=== PATIENT | male | born 1950 | race African-American/Black ===

== ENCOUNTER 2018-11-10 14:11 | Inpatient (IN) | payer OTHER ==
[2018-11-10 16:45] VITALS: BMI 26.9
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
[2018-11-10] MEDS ORDERED: MENTHOL/PHENOL 1 EACH UD MM PRN (19:28)
[2018-11-10] MEDS ORDERED: guaiFENesin 200 MG/10 ML 10 ML UNIT-DOSE CUPS PO PRN (19:28)
[2018-11-10] MEDS ORDERED: hydrOXYzine PAMOATE 25 MG CAPSULE (FP) PO PRN (19:28)
[2018-11-10] MEDS ORDERED: chlordiazePOXIDE HCL 25 MG CAPSULE PO PRN (19:28)
[2018-11-10] MEDS ORDERED: METHOCARBAMOL 500 MG TABLET PO PRN (19:28)
[2018-11-10] MEDS ORDERED: BISMUTH SUBSALICYLATE 524 MG/30 ML UD PO PRN (19:28)
[2018-11-10] MEDS ORDERED: P-EPHED 60MG/TRIPROLIDI 2.5MG TABLET PO PRN (19:28)
[2018-11-10] MEDS ORDERED: MAGNESIUM CITRATE 300 ML BOTTLE PO PRN (19:28)
[2018-11-10] MEDS ORDERED: MAGNESIUM HYDROX 2400MG/30ML ORAL SUSPENSION 30 ML CUP PO PRN (19:28)
[2018-11-10] MEDS ORDERED: IBUPROFEN 400 MG TABLET (FP) PO PRN (19:28)
[2018-11-10] MEDS ORDERED: DICYCLOMINE HCL 10 MG CAPSULE PO PRN (19:28)
[2018-11-10] MEDS ORDERED: NICOTINE POLACRILEX 2 MG GUM BUC PRN (19:28)
[2018-11-10] MEDS ORDERED: MAG HYDROX/AL HYDROX/SIMETH 30 ML UNIT-DOSE CUP PO PRN (19:28)
[2018-11-10] MEDS ORDERED: ONDANSETRON *ODT* 4 MG TABLET SL PRN (19:28)
[2018-11-10] MEDS ORDERED: ACETAMINOPHEN 325 MG TABLET (FP) PO PRN ×2 (19:28)
[2018-11-10] MEDS: THIAMINE HCL 100 MG TABLET (FP) PO SCH (22:01)
[2018-11-10] MEDS: chlordiazePOXIDE HCL 25 MG CAPSULE PO SCH (22:01)
[2018-11-10] MEDS: MELATONIN 5 MG TABLETS PO PRN (22:02)
[2018-11-11] MEDS: chlordiazePOXIDE HCL 25 MG CAPSULE PO SCH ×4 (06:45→23:38)
[2018-11-11] MEDS: NICOTINE 14 MG/24 HOURS TOPICAL PATCH TD SCH (10:19)
[2018-11-11] MEDS: PRENATAL VITAMINS W/ FOLIC ACID TABLET (FP) PO SCH (10:19)
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
--- NOTE | 2018-11-11 11:41 | EKG ---
Test Reason : Blood Pressure : / mmHG Vent. Rate : 069 BPM Atrial Rate : 069 BPM P-R Int : 182 ms QRS Dur : 144 ms QT Int : 442 ms P-R-T Axes : 022 016 064 degrees QTc Int : 473 ms NORMAL SINUS RHYTHM RIGHT BUNDLE BRANCH BLOCK ABNORMAL ECG NO PREVIOUS ECGS AVAILABLE Confirmed by MARY SHAW, AMY ([id number]) on 11/11/2018 11:40:53 AM Referred By: UZMA HODGE Confirmed By:AMY HERNANDEZ MD
[2018-11-11 12:29] LABS: ALBUMIN 2.4 g/dl (3.4-5.0); BILIRUBIN,TOTAL 0.4 mg/dL (0.2-1); BLOOD UREA NITROGEN 15.1 mg/dL (7-18); CALCIUM 8.2 mg/dL (8.5-10.1); CREATININE 1.6 mg/dL (0.55-1.3); POTASSIUM 3.8 mmol/L (3.5-5.1); TOT PROT 6.3 g/dl (6.4-8.2)
[2018-11-11 13:20] LABS: HEMATOCRIT 33.6 % (35.4-49); HEMOGLOBIN 10.4 GM/dL (11.7-16.9); MCH 25.1 pg (25.7-33.7); MCHC 30.9 g/dl (32.0-35.9); MEAN PLT VOLUME 8.7 fl (7.5-11.1); PLATELET COUNT 108 K/MM3 (134-434); RBC 4.15 M/mm3 (4.00-5.60); RDW 15.4 % (11.9-15.9); WHITE BLOOD COUNT 4.6 K/mm3 (4.0-10.0)
[2018-11-11] MEDS: LIDOCAINE 5% TOPICAL PATCH TP SCH (15:01)
--- NOTE | 2018-11-11 16:26 | PN ---
[facility] CIWA - CIWA Score Nausea/Vomitin-No Nausea/No Vomiting Muscle Tremors: 3 Anxiety: 3 Agitation: 0-Normal Activity Paroxysmal Sweats: No Perspiration Orientation: 2-Disoriented Date<2 days Tacttile Disturbances: 2-Mild Itch/Numbness/Burn Auditory Disturbances: 2-Mild Harshness/Frighten Visual Disturbances: 0-None Headache: 0-None Present CIWA-Ar Total Score: 12 S COWS - Scale Resting Pulse: 1= [place] 81-100 Sweatin= No chills or Flushing Restless Observation: 0= Sits Still Pupil Size: 0= Normal to Room Light Bone or Joint Aches: 2= Severe Diffuse Aches Runny Nose/ Eye Tearin= None GI Upset > 30mins: 0= None Tremor Observation of Outstretched Hands: 2= Slight Tremor Visible Yawning Observation: 1= 1-2x During Session Anxiety or Irritability: 2=Irritable/Anxious Goose Flesh Skin: 3=Piloerection COWS Score: 11 S Progress Note (SOAP) Subjective: Body Aches, Tremors, Anxious, Interrupted Sleep. Objective: PATIENT A & O X 2 (UNCERTAIN ABOUT CURRENT DAY / DATE). IN NO ACUTE DISTRESS. 11/11/18 16:27 Vital Signs Temperature 98.2 F 11/11/18 13:40 Pulse Rate 95 H 11/11/18 13:40 Respiratory Rate 20 11/11/18 13:40 Blood Pressure 139/68 11/11/18 13:40 O2 Sat by Pulse Oximetry (%) Laboratory Tests 11/11/18 11/11/18 07:30 07:30 WBC 4.6 RBC 4.15 Hgb 10.4 L Hct 33.6 L MCV 81.0 MCH 25.1 L MCHC 30.9 L RDW 15.4 Plt Count 108 L MPV 8.7 Sodium 140 Potassium 3.8 Chloride 105 Carbon Dioxide 28 Anion Gap 8 BUN 15.1 Creatinine 1.6 H Est GFR (CKD-EPI)AfAm 50.91 Est GFR (CKD-EPI)NonAf 43.93 Random Glucose 92 Calcium 8.2 L Total Bilirubin 0.4 AST 26 ALT 12 L Alkaline Phosphatase 105 Total Protein 6.3 L Albumin 2.4 L LABS NOTED. RESULTS OF DETOX ADMISSION QFT /TB AND RPR TESTS PENDING. 11/11/18 16:30 Assessment: 11/11/18 16:28 WITHDRAWAL SYMPTOMS. ANEMIA. THROMBOCYTOPENIA. AZOTEMIA. Plan: CONTINUE DETOX. D/C IBUPROFEN AND MAGNESIUM-CONTAINING MEDS. FOR ABNORMAL ADMISSION RENAL LAB VALUES. PATIENT IS CURRENTLY RECEIVING DAILY MVI CONTAINING B VITAMINS AND IRON WHILE ADMITTED FOR DETOX.
[2018-11-11] MEDS: LIDOCAINE PATCH REMOVAL MC SCH (22:00)
[2018-11-11] MEDS: THIAMINE HCL 100 MG TABLET (FP) PO SCH (23:37)
[2018-11-12] MEDS: chlordiazePOXIDE HCL 25 MG CAPSULE PO SCH ×4 (07:16→22:15)
[2018-11-12] MEDS ORDERED: FERROUS SO4 325 MG TABLET (FP) PO ONE (10:06)
--- NOTE | 2018-11-12 10:06 | PN ---
[facility] CIWA - CIWA Score Nausea/Vomitin-Mild Nausea/No Vomiting Muscle Tremors: 3 Anxiety: 1-Mildly Anxious Agitation: 1-Slight > Activity Paroxysmal Sweats: 2 Orientation: 0-Oriented Tacttile Disturbances: 0-None Auditory Disturbances: 0-None Visual Disturbances: 0-None Headache: 1-Very Mild CIWA-Ar Total Score: 9 [facility] COWS - Scale Resting Pulse: 0= [place] 80 or Below Sweatin= Chills/Flushing Restless Observation: 1= Difficult to Sit Still Pupil Size: 0= Normal to Room Light Bone or Joint Aches: 1= Mild Discomfort Runny Nose/ Eye Tearin= Nasal Congestion GI Upset > 30mins: 1= Stomach Cramp Tremor Observation of Outstretched Hands: 1= Tremor [place], Not Seen Yawning Observation: 0= None Anxiety or Irritability: 0= None Goose Flesh Skin: 0=Smooth Skin COWS Score: 6 [facility] Progress Note (SOAP) Subjective: Patient seen early this morning in bed and sweats apparent but otherwise very sleepy. Objective: 11/12/18 10:03 BP:140/84 P:80 R:18 T:97.3 Abnormal Lab Results 11/11/18 11/11/18 07:30 07:30 Hgb 10.4 L Hct 33.6 L MCH 25.1 L MCHC 30.9 L Plt Count 108 L Creatinine 1.6 H Calcium 8.2 L ALT 12 L Total Protein 6.3 L Albumin 2.4 L Assessment: 11/12/18 10:03 1. Alcohol and Opioid Dependence 2. Microcytic Anemia 3. Poor Nutrition Plan: 1. continue detox protocols. Encourage PO Fluids and proper nutrition. 2. Poor nutrition apparent from low TP and Alb. Encourage proper nutrition. Add Ensure to diet 3. Microcytic Anemia: add FESO4 325mg daily.
[2018-11-12] MEDS: NICOTINE 14 MG/24 HOURS TOPICAL PATCH TD SCH (10:12)
[2018-11-12] MEDS: PRENATAL VITAMINS W/ FOLIC ACID TABLET (FP) PO SCH (10:12)
[2018-11-12] MEDS: LIDOCAINE 5% TOPICAL PATCH TP SCH (10:16)
[2018-11-12] MEDS: THIAMINE HCL 100 MG TABLET (FP) PO SCH (22:15)
[2018-11-12] MEDS: MELATONIN 5 MG TABLETS PO PRN (22:16)
[2018-11-12] MEDS: LIDOCAINE PATCH REMOVAL MC SCH (22:18)
[2018-11-13] MEDS ORDERED: chlordiazePOXIDE HCL 10 MG CAPSULE PO PRN
[2018-11-13] MEDS: chlordiazePOXIDE HCL 10 MG CAPSULE PO SCH ×5 (07:53→23:44)
--- NOTE | 2018-11-13 10:56 | PN ---
S CIWA - CIWA Score Nausea/Vomitin-No Nausea/No Vomiting Muscle Tremors: 2 Anxiety: 3 Agitation: 0-Normal Activity Paroxysmal Sweats: 2 Orientation: 0-Oriented Tacttile Disturbances: 0-None Auditory Disturbances: 0-None Visual Disturbances: 0-None Headache: 2-Mild CIWA-Ar Total Score: 9 [facility] COWS - Scale Resting Pulse: 0= [place] 80 or Below Sweatin= Chills/Flushing Restless Observation: 1= Difficult to Sit Still Pupil Size: 0= Normal to Room Light Bone or Joint Aches: 0= None Runny Nose/ Eye Tearin= None GI Upset > 30mins: 0= None Tremor Observation of Outstretched Hands: 2= Slight Tremor Visible Yawning Observation: 1= 1-2x During Session Anxiety or Irritability: 1=Feels Anxious/Irritable Goose Flesh Skin: 0=Smooth Skin COWS Score: 6 [facility] Progress Note (SOAP) Subjective: c/o shakes, anxiety/irritability, sweats, and headache. Objective: 11/13/18 10:55 Vital Signs 11/13/18 11/13/18 11/13/18 03:30 06:00 09:52 Temperature 96.3 F L 96.1 F L Pulse Rate 76 82 Respiratory 18 18 16 Rate Blood Pressure 144/87 118/70 Lab Results WBC 4.6 K/mm3 (4.0-10.0) 11/11/18 07:30 RBC 4.15 M/mm3 (4.00-5.60) 11/11/18 07:30 Hgb 10.4 GM/dL (11.7-16.9) L 11/11/18 07:30 Hct 33.6 % (35.4-49) L 11/11/18 07:30 MCV 81.0 fl (80-96) 11/11/18 07:30 MCHC 30.9 g/dl (32.0-35.9) L 11/11/18 07:30 RDW 15.4 % (11.9-15.9) 11/11/18 07:30 Plt Count 108 K/MM3 (134-434) L 11/11/18 07:30 Sodium 140 mmol/L (136-145) 11/11/18 07:30 Potassium 3.8 mmol/L (3.5-5.1) 11/11/18 07:30 Chloride 105 mmol/L (98-107) 11/11/18 07:30 Carbon Dioxide 28 mmol/L (21-32) 11/11/18 07:30 Anion Gap 8 MMOL/L (8-16) 11/11/18 07:30 BUN 15.1 mg/dL (7-18) 11/11/18 07:30 Creatinine 1.6 mg/dL (0.55-1.3) H 11/11/18 07:30 Random Glucose 92 mg/dL (74-106) 11/11/18 07:30 Calcium 8.2 mg/dL (8.5-10.1) L 11/11/18 07:30 Labs noted. Assessment: 11/13/18 10:55 AOX3, in no acute respiratory distress. Full ROM, ambulating in the unit with a cane. Withdrawal symptoms. 11/13/18 10:55 Plan: continue detox.
[2018-11-13] MEDS: PRENATAL VITAMINS W/ FOLIC ACID TABLET (FP) PO SCH (11:06)
[2018-11-13] MEDS: NICOTINE 14 MG/24 HOURS TOPICAL PATCH TD SCH (11:07)
[2018-11-13] MEDS: LIDOCAINE 5% TOPICAL PATCH TP SCH (11:07)
[2018-11-13] MEDS: LIDOCAINE PATCH REMOVAL MC SCH (23:44)
[2018-11-13] MEDS: THIAMINE HCL 100 MG TABLET (FP) PO SCH (23:44)
[2018-11-14] MEDS: chlordiazePOXIDE HCL 10 MG CAPSULE PO SCH ×2 (05:52→17:31)
[2018-11-14] MEDS: PRENATAL VITAMINS W/ FOLIC ACID TABLET (FP) PO SCH (10:07)
[2018-11-14] MEDS: NICOTINE 14 MG/24 HOURS TOPICAL PATCH TD SCH (10:07)
[2018-11-14] MEDS: LIDOCAINE 5% TOPICAL PATCH TP SCH (10:25)
--- NOTE | 2018-11-14 14:36 | PN ---
[facility] CIWA - CIWA Score Nausea/Vomitin-No Nausea/No Vomiting Muscle Tremors: None Anxiety: 3 Agitation: 3 Paroxysmal Sweats: No Perspiration Orientation: 0-Oriented Tacttile Disturbances: 0-None Auditory Disturbances: 0-None Visual Disturbances: 0-None Headache: 0-None Present CIWA-Ar Total Score: 6 [facility] Progress Note (SOAP) Subjective: Drowsy Objective: 11/14/18 14:31 Last Vital Signs Temp Pulse Resp BP Pulse Ox 97.7 F 82 18 122/71 11/14/18 13:05 11/14/18 13:05 11/14/18 13:05 11/14/18 13:05 Laboratory Tests 11/11/18 11/11/18 11/11/18 07:30 07:30 07:30 WBC 4.6 RBC 4.15 Hgb 10.4 L Hct 33.6 L MCV 81.0 MCH 25.1 L MCHC 30.9 L RDW 15.4 Plt Count 108 L MPV 8.7 Sodium 140 Potassium 3.8 Chloride 105 Carbon Dioxide 28 Anion Gap 8 BUN 15.1 Creatinine 1.6 H Est GFR (CKD-EPI)AfAm 50.91 Est GFR (CKD-EPI)NonAf 43.93 Random Glucose 92 Calcium 8.2 L Total Bilirubin 0.4 AST 26 ALT 12 L Alkaline Phosphatase 105 Total Protein 6.3 L Albumin 2.4 L RPR Titer Nonreactive Labs reviewed: h/h 10.4/33.6 (anemia), plt 108; creatinine 1.6, GFR 50.91 (JAMAL) Assessment: 11/14/18 14:34 Withdrawal sxs Noted with anemia, thrombocytopenia and JAMAL Plan: Continue detox Encouraged PO water intake Anemia: most likely due to alcoholism, send iron studies, consider starting iron supplement Thrombocytopenia: most likely due to alcoholism: follow up with PCP for monitoring JAMAL: encouraged PO water hydration, repeat BMP
[2018-11-14] MEDS: LIDOCAINE PATCH REMOVAL MC SCH (23:34)
[2018-11-14] MEDS: THIAMINE HCL 100 MG TABLET (FP) PO SCH (23:34)
[2018-11-15] MEDS ORDERED: chlordiazePOXIDE HCL 10 MG CAPSULE PO ONE (05:00)
--- NOTE | 2018-11-15 09:27 | DS ---
[facility] Detox Discharge Summary Admission Date: 11/10/18 Discharge Date: 11/15/18 - History Present History: Alcohol Dependence, Opioid Dependence - Physical Exam Results Vital Signs: Vital Signs Temperature 98.2 F 11/15/18 09:20 Pulse Rate 93 H 11/15/18 09:20 Respiratory Rate 18 11/15/18 09:20 Blood Pressure 120/71 11/15/18 09:20 O2 Sat by Pulse Oximetry (%) Pertinent Admission Physical Exam Findings: pt arrived in withdrawal sx Laboratory Tests 11/11/18 11/11/18 11/11/18 07:30 07:30 07:30 WBC 4.6 RBC 4.15 Hgb 10.4 L Hct 33.6 L MCV 81.0 MCH 25.1 L MCHC 30.9 L RDW 15.4 Plt Count 108 L MPV 8.7 Sodium 140 Potassium 3.8 Chloride 105 Carbon Dioxide 28 Anion Gap 8 BUN 15.1 Creatinine 1.6 H Est GFR (CKD-EPI)AfAm 50.91 Est GFR (CKD-EPI)NonAf 43.93 Random Glucose 92 Calcium 8.2 L Total Bilirubin 0.4 AST 26 ALT 12 L Alkaline Phosphatase 105 Total Protein 6.3 L Albumin 2.4 L RPR Titer Nonreactive today pt is aaox3 ambulating no acute distress no s/s of withdrawals - Treatment Hospital Course: Detox Protocol Followed, Detoxed Safely, Responded well, Discharged Condition Good, Rehab Referral Accepted Patient has Accepted a Rehab Referral to: pt declined rehab; referral provided - Medication Discharge Medications: Ambulatory Orders NK [No Known Home Medication] 11/10/18 - Diagnosis (1) Abrasion of right shoulder Current Visit: Yes Status: Acute Qualifiers: Encounter type: initial encounter Qualified Code(s): S40.211A - Abrasion of right shoulder, initial encounter (2) Alcohol dependence with uncomplicated withdrawal Current Visit: Yes Status: Chronic (3) COPD (chronic obstructive pulmonary disease) Current Visit: Yes Status: Acute (4) Depressed affect Current Visit: Yes Status: Acute (5) HIV (human immunodeficiency virus infection) Current Visit: Yes Status: Chronic Qualifiers: HIV symptom status: unspecified Qualified Code(s): B20 - Human immunodeficiency virus [HIV] disease (6) Substance-induced anxiety disorder Current Visit: Yes Status: Acute (7) Substance-induced sleep disorder Current Visit: Yes Status: Acute (8) Uncomplicated opioid dependence Current Visit: Yes Status: Chronic (9) Nicotine dependence Current Visit: Yes Status: Chronic Qualifiers: Nicotine product type: cigarettes Substance use status: uncomplicated Qualified Code(s): F17.210 - Nicotine dependence, cigarettes, uncomplicated (10) History of hepatitis C virus infection Current Visit: Yes Status: Resolved - AMA Did Patient Leave Against Medical Advice: No
[2018-11-15] MEDS: NICOTINE 14 MG/24 HOURS TOPICAL PATCH TD SCH (12:22)
[2018-11-15] MEDS: PRENATAL VITAMINS W/ FOLIC ACID TABLET (FP) PO SCH (12:22)
[2018-11-15] MEDS: LIDOCAINE 5% TOPICAL PATCH TP SCH (12:22)
[2018-11-15 12:34] LABS: BLOOD UREA NITROGEN 20.6 mg/dL (7-18); CALCIUM 8.8 mg/dL (8.5-10.1); CREATININE 1.4 mg/dL (0.55-1.3); POTASSIUM 4.7 mmol/L (3.5-5.1)
[2018-11-15 13:21] VITALS: BP 121/74; PULSE 90; TEMP 98.1
== END 2018-11-15 14:22 | disposition home or self-care (01) | DRG 773 ==
LOC: YASAS 14:11 → Y6N 19:12
PROVIDERS: ADMIT Surgery; ATTEND Surgery
PROC: HZ2ZZZZ Detoxification Services for Substance Abuse Treatment (ICD-10-PCS; principal; 2018-11-10)
DX: F11.23 Opioid dependence with withdrawal (principal); F10.230 Alcohol dependence with withdrawal, uncomplicated; F17.210 Nicotine dependence, cigarettes, uncomplicated; F19.280 Other psychoactive substance dependence with psychoactive substance-induced anxiety disorder; F19.282 Other psychoactive substance dependence with psychoactive substance-induced sleep disorder; Z21 Asymptomatic human immunodeficiency virus [HIV] infection status; D69.6 Thrombocytopenia, unspecified; D50.9 Iron deficiency anemia, unspecified; J44.9 Chronic obstructive pulmonary disease, unspecified; N17.9 Acute kidney failure, unspecified; M54.5 Low back pain; R45.89 Other symptoms and signs involving emotional state; R79.89 Other specified abnormal findings of blood chemistry; R60.0 Localized edema; Z86.19 Personal history of other infectious and parasitic diseases; Z90.5 Acquired absence of kidney; Z90.81 Acquired absence of spleen; Z95.828 Presence of other vascular implants and grafts; R26.89 Other abnormalities of gait and mobility; Z99.89 Dependence on other enabling machines and devices; S40.211A Abrasion of right shoulder, initial encounter; X58.XXXA Exposure to other specified factors, initial encounter; Y93.89 Activity, other specified; Y92.89 Other specified places as the place of occurrence of the external cause; Y99.8 Other external cause status
CPT/HCPCS: 36415; 80048; 80053; 82607; 82728; 82746; 83540; 83550; 85027; 86480; 86593; 93005; 93010